=== PATIENT | male | born 1955 ===

== ENCOUNTER 2021-11-06 15:42 | Inpatient (IN) | payer OTHER, MEDICAID ==
[~2021-11-06] VITALS: Ht 193 cm; Wt 103.0 kg
[2021-11-06] MEDS ORDERED: cefTRIAXone 1GM/50ML D5W 50 ML IV ONE (18:00)
[2021-11-06] MEDS ORDERED: DexAMETHasone SOD PHOS 10MG/1ML VIAL INJ IV ONE (18:00)
[2021-11-06] MEDS ORDERED: AZITHROMYCIN 500MG/ 250ML 250 ML IV ONE (18:00)
[2021-11-06 18:12] LABS: Eosinophils # (auto) 0 10 ^3/uL (0-0.8); Lymphocytes # (auto) 0.2 10 ^3/uL (0.4-5.4); White Blood Cell 3.3 10^3/uL (4.4-10.8)
[2021-11-06 18:14] LABS: Basophils # (auto) 0 10 ^3/uL (0-0.2); Basophils % (auto) 0.5 % (0.0-2.0); Eosinophils % (auto) 0.2 % (0.0-7.0); Hemoglobin 20.5 g/dL (13.5-17.5); Lymphocytes % (auto) 6.3 % (10.0-50.0); Mean Corpuscular Hemoglobin 29.9 pg (28.0-32.0); Mean Corpuscular Volume 90.4 fL (80.0-100.0); Monocytes # (auto) 0.6 10 ^3/uL (0-1.3); Monocytes % (auto) 17.7 % (0.0-12.0); Neutrophils # (auto) 2.5 10 ^3/uL (1.6-8.6); Neutrophils % (auto) 75.3 % (37.0-80.0); Nucleated Red Blood Cells % 0.1 %; Red Blood Cells 6.86 10^6/uL (4.5-5.90); Red Cell Distribution Width 14.2 % (11.8-14.3)
[2021-11-06 18:15] LABS: Hematocrit 62.1 % (41.0-53.0)
[2021-11-06 18:27] LABS: Albumin 3.5 g/dL (3.4-5.0); Potassium 4.4 mmol/L (3.5-5.1)
[2021-11-06 18:32] LABS: BUN/Creatinine Ratio 20.9; Total Protein 6.8 g/dL (6.4-8.2)
[2021-11-06] MEDS ORDERED: NITROGLYCERIN 0.4 MG SL TAB SL PRN ×2 (18:45→21:00)
[2021-11-06] MEDS ORDERED: MORPHINE SULFATE INJECTION 2 MG/ML SYRG IV PRN ×3 (18:45→21:00)
[2021-11-06 19:52] LABS: Urine Bacteria FEW /hpf (None Seen); Urine Blood Negative /uL (Negative); Urine Hyaline Cast MOD /lpf (0 - 2); Urine Mucus FEW (None Seen); Urine Specific Gravity 1.021 (1.001-1.035); Urine WBC 4 /hpf (0 - 3)
[2021-11-06] MEDS ORDERED: ALBUTEROL SULF 2.5 MG/0.5ML(0.5%) NEB SOLN NEB PRN (20:45)
[2021-11-06] MEDS ORDERED: REMDESIVIR PER PHARMACY 0 ML IV SCH (20:45)
[2021-11-06] MEDS ORDERED: ENOXAPARIN SOD 40 MG/0.4 ML SYRINGE SC ONE (20:45)
[2021-11-06] MEDS ORDERED: ALBUTEROL SULF 2.5 MG/0.5ML(0.5%) NEB SOLN NEB ONE (20:45)
[2021-11-06] MEDS ORDERED: ACETAMINOPHEN 500 MG TAB PO PRN (20:45)
[2021-11-06] MEDS ORDERED: IPRATROPIUM BROM 0.5 MG/2.5ML INH SOL NEB ONE (20:45)
[2021-11-06] MEDS ORDERED: hydrALAZINE HCL 20 MG/ML VL IV PRN (21:00)
[2021-11-06] MEDS ORDERED: ALUM & MAG HYDROX-SIMETH LIQ(MAALOX) 30 ML PO PRN (21:00)
[2021-11-06] MEDS ORDERED: METOCLOPRAMIDE HCL 5MG/ml INJ 2ml VIAL IV PRN (21:00)
[2021-11-06] MEDS ORDERED: FAMOTIDINE (10MG/ML) 2ML VL IV ONE (21:00)
[2021-11-06] MEDS ORDERED: HYDROcodone-ACET 5/325MG TAB PO PRN (21:00)
[2021-11-06] MEDS ORDERED: ACETAMINOPHEN 325 MG TAB PO PRN ×2 (21:00→21:15)
[2021-11-06] MEDS ORDERED: METOPROLOL SUCCINATE XL 50 MG TAB PO ONE (21:00)
[2021-11-06] MEDS ORDERED: DOCUSATE SOD 100 MG CAP PO PRN (21:00)
[2021-11-06] MEDS: BUDESONIDE (INHALATION) 180 MCG IH IN SCH (22:00)
[2021-11-06] MEDS ORDERED: ENOXAPARIN SOD 60 MG/0.6 ML SYRINGE SC SCH (22:00)
[2021-11-06] MEDS ORDERED: ALBUTEROL SULF HFA 90MCG INH 200DOSE IN SCH (22:00)
[2021-11-06 22:24] LABS: CRP High Sensitivity 2.54 mg/dL (< 0.3); Magnesium 2.3 mg/dL (1.6-2.6); Thyroid Stimulating Hormone 1.44 uIU/mL (0.358-3.74)
[2021-11-06] MEDS: ATORVASTATIN 20 MG TAB PO SCH (22:27)
[2021-11-06] MEDS: ENOXAPARIN SOD 40 MG/0.4 ML SYRINGE SC SCH (22:27)
[2021-11-06] MEDS ORDERED: REMDESIVIR 200 MG in NS 210ml LOADING DOSE ADULT IV ONE (22:30)
[2021-11-06 23:39] LABS: Alcohol, Urine < 3.0 mg/dL (0-10); Amphetamine Screen, Urine NEGATIVE (NEGATIVE); Barbiturate Scree,Urine NEGATIVE (NEGATIVE); Benzodiazephine Screen, Urine NEGATIVE (NEGATIVE); Cocaine Screen, Urine NEGATIVE (NEGATIVE); Phencyclidine Screen, Urine NEGATIVE (NEGATIVE)
[2021-11-06 23:47] LABS: Cannabinoid Screen, Urine POSITIVE (NEGATIVE); Opiate Scree,Urine NEGATIVE (NEGATIVE)
[2021-11-07] MEDS ORDERED: IPRATROPIUM BROM 0.5 MG/2.5ML INH SOL NEB SCH (02:00)
[2021-11-07 06:54] LABS: Basophils # (auto) 0 10 ^3/uL (0-0.2); Eosinophils # (auto) 0 10 ^3/uL (0-0.8); Hemoglobin 18.1 g/dL (13.5-17.5); Monocytes # (auto) 0.4 10 ^3/uL (0-1.3); White Blood Cell 3.6 10^3/uL (4.4-10.8)
[2021-11-07 06:57] LABS: Basophils % (auto) 0.2 % (0.0-2.0); Hematocrit 52.8 % (41.0-53.0); Lymphocytes # (auto) 0.1 10 ^3/uL (0.4-5.4); Lymphocytes % (auto) 4.1 % (10.0-50.0); Mean Corpuscular Hemoglobin 30.7 pg (28.0-32.0); Mean Corpuscular Hgb Conc. 34.3 g/dL (32.0-36.0); Mean Corpuscular Volume 89.4 fL (80.0-100.0); Monocytes % (auto) 11.8 % (0.0-12.0); Neutrophils % (auto) 83.9 % (37.0-80.0); Nucleated Red Blood Cells % 0.1 %; Red Blood Cells 5.91 10^6/uL (4.5-5.90); Red Cell Distribution Width 14.1 % (11.8-14.3)
[2021-11-07 07:18] LABS: INR 1.21 (0.9-1.15); Partial Thromboplastin Time 52.2 sec (23.6-33.0)
[2021-11-07 07:22] LABS: Albumin 2.5 g/dL (3.4-5.0); Calcium 7.4 mg/dL (8.5-10.1); Magnesium 2.9 mg/dL (1.6-2.6); Potassium 3.6 mmol/L (3.5-5.1)
[2021-11-07 07:30] LABS: BUN/Creatinine Ratio 39.6; Bilirubin, Total 0.5 mg/dL (0.2-1.0); Phosphorus 3.1 mg/dL (2.5-4.90); Total Protein 5.4 g/dL (6.4-8.2); Uric Acid 5.7 mg/dL (3.5-7.2)
[2021-11-07] MEDS: cefTRIAXone 1GM/50ML D5W 50 ML IV SCH (09:50)
[2021-11-07] MEDS: BUDESONIDE (INHALATION) 180 MCG IH IN SCH ×2 (10:00→18:12)
[2021-11-07] MEDS ORDERED: AZITHROMYCIN 500MG/ 250ML 250 ML IV SCH (10:00)
[2021-11-07] MEDS: FAMOTIDINE (10MG/ML) 2ML VL IV SCH ×2 (10:28→21:06)
[2021-11-07] MEDS: IVERMECTIN 3 MG TAB PO SCH (10:29)
[2021-11-07] MEDS: ENOXAPARIN SOD 40 MG/0.4 ML SYRINGE SC SCH ×2 (10:29→21:06)
[2021-11-07] MEDS: ZINC SULFATE 220mg CAP or TAB PO SCH (10:29)
[2021-11-07] MEDS: NIFEdipine ER 30 MG TAB PO SCH (10:29)
[2021-11-07] MEDS: CHOLECALCIFEROL (VITD3) 2,000 UNIT CAP/TAB PO SCH (10:29)
[2021-11-07] MEDS: BENAZEPRIL HCL 10 MG TAB PO SCH (10:30)
[2021-11-07] MEDS: ASCORBIC ACID 1,000 MG TAB PO SCH (10:30)
[2021-11-07] MEDS: ASPirin 81 mg TAB PO SCH (10:30)
[2021-11-07] MEDS: DexAMETHasone SOD PHOS 10MG/1ML VIAL INJ IV SCH (10:30)
[2021-11-07] MEDS: METOPROLOL SUCCINATE XL 50 MG TAB PO SCH (10:31)
[2021-11-07] MEDS: AZITHROMYCIN 500MG/ 250ML 250 ML IV SCH (10:32)
[2021-11-07] MEDS ORDERED: ASPI81TA10 PO (15:03)
[2021-11-07] MEDS ORDERED: LISI40TA11 PO (15:03)
[2021-11-07] MEDS ORDERED: AMLO-496 PO (15:03)
[2021-11-07] MEDS ORDERED: MET50T PO (15:03)
[2021-11-07] MEDS: REMDESIVIR 100mg 100 MG in SODIUM CHL 0.9% 230 ML IV SCH (15:12)
[2021-11-07 17:00] VITALS: BP 100/66
[2021-11-07] MEDS: ATORVASTATIN 20 MG TAB PO SCH (21:06)
[2021-11-07 22:00] VITALS: BP 118/72
[2021-11-08] VITALS (12 sets, daily range): BP systolic 85–124; BP diastolic 54–77
[2021-11-08 07:05] LABS: White Blood Cell 3.3 10^3/uL (4.4-10.8)
[2021-11-08 07:08] LABS: Hematocrit 54.3 % (41.0-53.0); Hemoglobin 18.3 g/dL (13.5-17.5); Mean Corpuscular Hemoglobin 30.3 pg (28.0-32.0); Mean Corpuscular Hgb Conc. 33.8 g/dL (32.0-36.0); Mean Corpuscular Volume 89.7 fL (80.0-100.0); Red Blood Cells 6.06 10^6/uL (4.5-5.90); Red Cell Distribution Width 14.2 % (11.8-14.3)
[2021-11-08 07:29] LABS: Basophils % (manual) 0 (0.0-2.0); Blast Cells 0; Eosinophils % (manual) 0 (0-7); Metamyelocytes % 0; Myelocytes % 0; Promyelocytes % 0; Reactive Lymphocytes 0
[2021-11-08 08:31] LABS: Band Neutrophils % (manual) 5; Lymphocytes % (manual) 10 (10.0-50.0); Monocytes % (manual) 14 (0-12)
[2021-11-08] MEDS: cefTRIAXone 1GM/50ML D5W 50 ML IV SCH (09:14)
[2021-11-08] MEDS: DexAMETHasone SOD PHOS 10MG/1ML VIAL INJ IV SCH (09:14)
[2021-11-08] MEDS: ASPirin 81 mg TAB PO SCH (09:15)
[2021-11-08] MEDS: FAMOTIDINE (10MG/ML) 2ML VL IV SCH ×2 (09:15→22:14)
[2021-11-08] MEDS: ZINC SULFATE 220mg CAP or TAB PO SCH (09:15)
[2021-11-08] MEDS: BENAZEPRIL HCL 10 MG TAB PO SCH (09:16)
[2021-11-08] MEDS: NIFEdipine ER 30 MG TAB PO SCH (09:16)
[2021-11-08] MEDS: IVERMECTIN 3 MG TAB PO SCH (09:16)
[2021-11-08] MEDS: METOPROLOL SUCCINATE XL 50 MG TAB PO SCH (09:17)
[2021-11-08] MEDS: ASCORBIC ACID 1,000 MG TAB PO SCH (09:17)
[2021-11-08 09:18] LABS: Potassium 4.3 mmol/L (3.5-5.1)
[2021-11-08] MEDS: ENOXAPARIN SOD 40 MG/0.4 ML SYRINGE SC SCH ×2 (09:18→22:14)
[2021-11-08] MEDS: CHOLECALCIFEROL (VITD3) 2,000 UNIT CAP/TAB PO SCH (09:18)
[2021-11-08 09:19] LABS: Albumin 2.5 g/dL (3.4-5.0); Bilirubin, Total 0.5 mg/dL (0.2-1.0); Calcium 7.5 mg/dL (8.5-10.1); Total Protein 5.2 g/dL (6.4-8.2)
[2021-11-08] MEDS: BUDESONIDE (INHALATION) 180 MCG IH IN SCH ×2 (10:00→22:00)
[2021-11-08] MEDS: AZITHROMYCIN 500MG/ 250ML 250 ML IV SCH (10:38)
[2021-11-08] MEDS: REMDESIVIR 100mg 100 MG in SODIUM CHL 0.9% 230 ML IV SCH (15:57)
[2021-11-08] MEDS: ATORVASTATIN 20 MG TAB PO SCH (22:15)
[2021-11-09] VITALS (9 sets, daily range): BP systolic 102–127; BP diastolic 57–74
[2021-11-09] MEDS: LORazepam 0.5 MG TAB PO PRN ×2 (01:06→21:55)
[2021-11-09] MEDS: BUDESONIDE (INHALATION) 180 MCG IH IN SCH ×2 (07:28→19:20)
[2021-11-09 07:51] LABS: Basophils # (auto) 0 10 ^3/uL (0-0.2)
[2021-11-09 07:54] LABS: Basophils % (auto) 0.7 % (0.0-2.0); Eosinophils # (auto) 0.1 10 ^3/uL (0-0.8); Eosinophils % (auto) 1.2 % (0.0-7.0); Hemoglobin 18.7 g/dL (13.5-17.5); Lymphocytes # (auto) 0.3 10 ^3/uL (0.4-5.4); Lymphocytes % (auto) 6.3 % (10.0-50.0); Mean Corpuscular Hemoglobin 29.8 pg (28.0-32.0); Mean Corpuscular Hgb Conc. 32.9 g/dL (32.0-36.0); Mean Corpuscular Volume 90.7 fL (80.0-100.0); Monocytes # (auto) 0.7 10 ^3/uL (0-1.3); Monocytes % (auto) 13.8 % (0.0-12.0); Neutrophils # (auto) 3.9 10 ^3/uL (1.6-8.6); Nucleated Red Blood Cells % 0.9 %; Red Blood Cells 6.29 10^6/uL (4.5-5.90); Red Cell Distribution Width 14.3 % (11.8-14.3)
[2021-11-09 08:14] LABS: Potassium 4.8 mmol/L (3.5-5.1)
[2021-11-09 08:26] LABS: Albumin 2.7 g/dL (3.4-5.0); BUN/Creatinine Ratio 52.8; Bilirubin, Total 0.6 mg/dL (0.2-1.0); CRP High Sensitivity 0.95 mg/dL (< 0.3); Calcium 7.5 mg/dL (8.5-10.1); Total Protein 5.4 g/dL (6.4-8.2)
[2021-11-09] MEDS: cefTRIAXone 1GM/50ML D5W 50 ML IV SCH (09:10)
[2021-11-09] MEDS: DexAMETHasone SOD PHOS 10MG/1ML VIAL INJ IV SCH (09:11)
[2021-11-09] MEDS: FAMOTIDINE (10MG/ML) 2ML VL IV SCH ×2 (09:11→21:55)
[2021-11-09] MEDS: ASPirin 81 mg TAB PO SCH (09:12)
[2021-11-09] MEDS: ZINC SULFATE 220mg CAP or TAB PO SCH (09:12)
[2021-11-09] MEDS: BENAZEPRIL HCL 10 MG TAB PO SCH (09:13)
[2021-11-09] MEDS: NIFEdipine ER 30 MG TAB PO SCH (09:14)
[2021-11-09] MEDS: IVERMECTIN 3 MG TAB PO SCH (09:14)
[2021-11-09] MEDS: METOPROLOL SUCCINATE XL 50 MG TAB PO SCH (09:15)
[2021-11-09] MEDS: ENOXAPARIN SOD 40 MG/0.4 ML SYRINGE SC SCH ×2 (09:16→21:55)
[2021-11-09] MEDS: CHOLECALCIFEROL (VITD3) 2,000 UNIT CAP/TAB PO SCH (09:16)
[2021-11-09] MEDS: ASCORBIC ACID 1,000 MG TAB PO SCH (09:16)
[2021-11-09] MEDS: AZITHROMYCIN 500MG/ 250ML 250 ML IV SCH (10:15)
[2021-11-09] MEDS ORDERED: SODIUM CHLORIDE 0.9% 1,000 ML IV SCH (13:30)
[2021-11-09] MEDS: REMDESIVIR 100mg 100 MG in SODIUM CHL 0.9% 230 ML IV SCH (15:27)
[2021-11-09] MEDS: ATORVASTATIN 20 MG TAB PO SCH (21:55)
[2021-11-10] VITALS (7 sets, daily range): BP systolic 110–121; BP diastolic 62–109
[2021-11-10] MEDS: BUDESONIDE (INHALATION) 180 MCG IH IN SCH ×2 (06:18→19:04)
[2021-11-10 07:54] LABS: Basophils # (auto) 0 10 ^3/uL (0-0.2); Eosinophils # (auto) 0 10 ^3/uL (0-0.8); Hemoglobin 18.8 g/dL (13.5-17.5); Monocytes # (auto) 0.8 10 ^3/uL (0-1.3); Monocytes % (auto) 15.5 % (0.0-12.0)
[2021-11-10 07:58] LABS: Lymphocytes # (auto) 0.3 10 ^3/uL (0.4-5.4); Lymphocytes % (auto) 6.3 % (10.0-50.0); Mean Corpuscular Hemoglobin 29.9 pg (28.0-32.0); Mean Corpuscular Hgb Conc. 33.1 g/dL (32.0-36.0); Mean Corpuscular Volume 90.3 fL (80.0-100.0); Neutrophils # (auto) 3.9 10 ^3/uL (1.6-8.6); Neutrophils % (auto) 78.2 % (37.0-80.0); Nucleated Red Blood Cells % 0.1 %; Red Cell Distribution Width 14.2 % (11.8-14.3)
[2021-11-10 08:07] LABS: Hematocrit 56.9 % (41.0-53.0)
[2021-11-10 08:13] LABS: Potassium 4.5 mmol/L (3.5-5.1)
[2021-11-10 08:20] LABS: Albumin 2.7 g/dL (3.4-5.0); BUN/Creatinine Ratio 55.2; Bilirubin, Total 0.6 mg/dL (0.2-1.0); Calcium 7.8 mg/dL (8.5-10.1); Total Protein 5.4 g/dL (6.4-8.2)
[2021-11-10] MEDS: DexAMETHasone SOD PHOS 10MG/1ML VIAL INJ IV SCH (09:38)
[2021-11-10] MEDS: FAMOTIDINE (10MG/ML) 2ML VL IV SCH ×2 (09:38→22:09)
[2021-11-10] MEDS: cefTRIAXone 1GM/50ML D5W 50 ML IV SCH (09:38)
[2021-11-10] MEDS: ENOXAPARIN SOD 40 MG/0.4 ML SYRINGE SC SCH ×2 (09:39→22:10)
[2021-11-10] MEDS: ZINC SULFATE 220mg CAP or TAB PO SCH (09:40)
[2021-11-10] MEDS: ASPirin 81 mg TAB PO SCH (09:40)
[2021-11-10] MEDS: ASCORBIC ACID 1,000 MG TAB PO SCH (09:41)
[2021-11-10] MEDS: CHOLECALCIFEROL (VITD3) 2,000 UNIT CAP/TAB PO SCH (09:41)
[2021-11-10] MEDS: IVERMECTIN 3 MG TAB PO SCH (09:42)
[2021-11-10] MEDS: BENAZEPRIL HCL 10 MG TAB PO SCH (09:43)
[2021-11-10] MEDS: NIFEdipine ER 30 MG TAB PO SCH (09:43)
[2021-11-10] MEDS: METOPROLOL SUCCINATE XL 50 MG TAB PO SCH (09:44)
[2021-11-10] MEDS: AZITHROMYCIN 500MG/ 250ML 250 ML IV SCH (10:50)
[2021-11-10] MEDS: REMDESIVIR 100mg 100 MG in SODIUM CHL 0.9% 230 ML IV SCH (15:28)
[2021-11-10] MEDS: ATORVASTATIN 20 MG TAB PO SCH (22:10)
[2021-11-10] MEDS: LORazepam 0.5 MG TAB PO PRN (23:41)
[2021-11-11 05:00] VITALS: BP_SYST 120; BP_SYST 125; BP_DIAS 67; BP_DIAS 69
[2021-11-11 05:58] LABS: Basophils # (auto) 0 10 ^3/uL (0-0.2); Basophils % (auto) 0.8 % (0.0-2.0); Eosinophils # (auto) 0 10 ^3/uL (0-0.8); Hemoglobin 17.1 g/dL (13.5-17.5); Lymphocytes # (auto) 0.2 10 ^3/uL (0.4-5.4); Lymphocytes % (auto) 3.5 % (10.0-50.0); Mean Corpuscular Hemoglobin 29.6 pg (28.0-32.0); Mean Corpuscular Hgb Conc. 32.8 g/dL (32.0-36.0); Mean Corpuscular Volume 90.1 fL (80.0-100.0); Monocytes # (auto) 0.8 10 ^3/uL (0-1.3); Monocytes % (auto) 14.6 % (0.0-12.0); Neutrophils # (auto) 4.2 10 ^3/uL (1.6-8.6); Neutrophils % (auto) 81.1 % (37.0-80.0); Red Blood Cells 5.78 10^6/uL (4.5-5.90); Red Cell Distribution Width 14.5 % (11.8-14.3); White Blood Cell 5.2 10^3/uL (4.4-10.8)
[2021-11-11 06:17] LABS: Albumin 2.4 g/dL (3.4-5.0); Calcium 7.5 mg/dL (8.5-10.1); Potassium 4.5 mmol/L (3.5-5.1)
[2021-11-11 06:23] LABS: BUN/Creatinine Ratio 65.4; Bilirubin, Total 0.4 mg/dL (0.2-1.0); Total Protein 4.9 g/dL (6.4-8.2)
[2021-11-11] MEDS: BUDESONIDE (INHALATION) 180 MCG IH IN SCH ×2 (06:52→21:09)
[2021-11-11 09:00] VITALS: BP 122/65
[2021-11-11] MEDS ORDERED: IOHEXOL 350 MG/ML 100ML IJ ONE (09:45)
[2021-11-11] MEDS: cefTRIAXone 1GM/50ML D5W 50 ML IV SCH (10:01)
[2021-11-11] MEDS: ASCORBIC ACID 1,000 MG TAB PO SCH (10:02)
[2021-11-11] MEDS: DexAMETHasone SOD PHOS 10MG/1ML VIAL INJ IV SCH (10:02)
[2021-11-11] MEDS: FAMOTIDINE (10MG/ML) 2ML VL IV SCH ×2 (10:02→21:51)
[2021-11-11] MEDS: ASPirin 81 mg TAB PO SCH (10:03)
[2021-11-11] MEDS: IVERMECTIN 3 MG TAB PO SCH (10:04)
[2021-11-11] MEDS: ZINC SULFATE 220mg CAP or TAB PO SCH (10:04)
[2021-11-11] MEDS: CHOLECALCIFEROL (VITD3) 2,000 UNIT CAP/TAB PO SCH (10:04)
[2021-11-11] MEDS: ENOXAPARIN SOD 40 MG/0.4 ML SYRINGE SC SCH ×2 (10:05→21:51)
[2021-11-11] MEDS: BENAZEPRIL HCL 10 MG TAB PO SCH (10:08)
[2021-11-11] MEDS: NIFEdipine ER 30 MG TAB PO SCH (10:08)
[2021-11-11] MEDS: METOPROLOL SUCCINATE XL 50 MG TAB PO SCH (10:12)
[2021-11-11] MEDS: AZITHROMYCIN 500MG/ 250ML 250 ML IV SCH (12:17)
[2021-11-11 12:56] VITALS: BP 121/71
[2021-11-11] MEDS ORDERED: NIFE1TAB31 PO (13:58)
[2021-11-11] MEDS ORDERED: CHOL1CAP47 PO (13:58)
[2021-11-11] MEDS ORDERED: ALBU108A5 IN (13:58)
[2021-11-11] MEDS ORDERED: ZINC220T6 PO (13:58)
[2021-11-11] MEDS ORDERED: ASCO10003 PO (13:58)
[2021-11-11] MEDS ORDERED: DEXA6TAB6 PO (13:58)
[2021-11-11] MEDS ORDERED: METO-6 PO (13:58)
[2021-11-11] MEDS ORDERED: DOXY-346 PO (14:02)
[2021-11-11 16:42] VITALS: BP 114/65
[2021-11-11 21:44] VITALS: BP 122/69
[2021-11-11] MEDS: ATORVASTATIN 20 MG TAB PO SCH (21:51)
[2021-11-12] MEDS: LORazepam 0.5 MG TAB PO PRN (01:10)
[2021-11-12 05:00] VITALS: BP 133/84
[2021-11-12 05:57] LABS: Potassium 4.6 mmol/L (3.5-5.1)
[2021-11-12 05:58] LABS: Basophils # (auto) 0 10 ^3/uL (0-0.2); Basophils % (auto) 0.5 % (0.0-2.0); Eosinophils # (auto) 0 10 ^3/uL (0-0.8); Hematocrit 51.7 % (41.0-53.0); Hemoglobin 17.3 g/dL (13.5-17.5); Lymphocytes # (auto) 0.2 10 ^3/uL (0.4-5.4); Lymphocytes % (auto) 3.1 % (10.0-50.0); Mean Corpuscular Hemoglobin 30.2 pg (28.0-32.0); Mean Corpuscular Hgb Conc. 33.4 g/dL (32.0-36.0); Mean Corpuscular Volume 90.4 fL (80.0-100.0); Monocytes # (auto) 0.7 10 ^3/uL (0-1.3); Monocytes % (auto) 12.2 % (0.0-12.0); Neutrophils % (auto) 84.2 % (37.0-80.0); Nucleated Red Blood Cells % 0.1 %; Red Blood Cells 5.71 10^6/uL (4.5-5.90); Red Cell Distribution Width 14.4 % (11.8-14.3); White Blood Cell 5.9 10^3/uL (4.4-10.8)
[2021-11-12] MEDS: BUDESONIDE (INHALATION) 180 MCG IH IN SCH (06:12)
[2021-11-12 06:17] LABS: Albumin 2.3 g/dL (3.4-5.0); BUN/Creatinine Ratio 69.2; Bilirubin, Total 0.4 mg/dL (0.2-1.0); Calcium 7.2 mg/dL (8.5-10.1); Total Protein 4.9 g/dL (6.4-8.2)
[2021-11-12 08:00] VITALS: BP 122/65
[2021-11-12 10:06] VITALS: BP 128/69
[2021-11-12] MEDS: FAMOTIDINE (10MG/ML) 2ML VL IV SCH (10:24)
[2021-11-12] MEDS: DexAMETHasone SOD PHOS 10MG/1ML VIAL INJ IV SCH (10:24)
[2021-11-12] MEDS: ASPirin 81 mg TAB PO SCH (10:24)
[2021-11-12] MEDS: cefTRIAXone 1GM/50ML D5W 50 ML IV SCH (10:24)
[2021-11-12] MEDS: METOPROLOL SUCCINATE XL 50 MG TAB PO SCH (10:25)
[2021-11-12] MEDS: NIFEdipine ER 30 MG TAB PO SCH (10:25)
[2021-11-12] MEDS: BENAZEPRIL HCL 10 MG TAB PO SCH (10:25)
[2021-11-12] MEDS: ASCORBIC ACID 1,000 MG TAB PO SCH (10:25)
[2021-11-12] MEDS: ENOXAPARIN SOD 40 MG/0.4 ML SYRINGE SC SCH (10:26)
[2021-11-12] MEDS: CHOLECALCIFEROL (VITD3) 2,000 UNIT CAP/TAB PO SCH (10:26)
[2021-11-12] MEDS: ZINC SULFATE 220mg CAP or TAB PO SCH (10:27)
[2021-11-12 13:00] VITALS: BP 116/68
[2021-11-12 15:16] VITALS: BP 128/69
== END 2021-11-12 17:13 | disposition home health service (06) | DRG 871 ==
LOC: ER 15:42 → EDBD 15:42 → TELE 18:44 → TELE-EAST 11-07 13:32 → EAST 11-08 11:08 → TELE-E-ADS 11-09 04:45
PROVIDERS: ADMIT Hospitalist; ATTEND Hospitalist
PROC: XW033E5 Introduction of Remdesivir Anti-infective into Peripheral Vein, Percutaneous Approach, New Technology Group 5 (ICD-10-PCS; 2021-11-06)
PROC: 5A0945A Assistance with Respiratory Ventilation, 24-96 Consecutive Hours, High Flow/Velocity Cannula (ICD-10-PCS; principal; 2021-11-08)
PROC: 05HC33Z Insertion of Infusion Device into Left Basilic Vein, Percutaneous Approach (ICD-10-PCS; 2021-11-08)
PROC: B54NZZA Ultrasonography of Left Upper Extremity Veins, Guidance (ICD-10-PCS; 2021-11-08)
DX: A41.89 Other specified sepsis (principal); U07.1 COVID-19; J12.82 Pneumonia due to coronavirus disease 2019; J96.21 Acute and chronic respiratory failure with hypoxia; J44.1 Chronic obstructive pulmonary disease with (acute) exacerbation; N39.0 Urinary tract infection, site not specified; G82.20 Paraplegia, unspecified; I16.9 Hypertensive crisis, unspecified; E87.1 Hypo-osmolality and hyponatremia; J44.0 Chronic obstructive pulmonary disease with (acute) lower respiratory infection; K21.9 Gastro-esophageal reflux disease without esophagitis; D75.1 Secondary polycythemia; K75.81 Nonalcoholic steatohepatitis (NASH); E78.5 Hyperlipidemia, unspecified; F12.90 Cannabis use, unspecified, uncomplicated; F17.200 Nicotine dependence, unspecified, uncomplicated; I10 Essential (primary) hypertension; Z74.01 Bed confinement status
CPT/HCPCS: 36415; 36600; 71045; 71275; 80053; 80307; 81001; 82306; 82728; 82805; 83036; 83605; 83615; 83735; 83880; 84100; 84443; 84484; 84550; 85007; 85025; 85027; 85379; 85610; 85730; 86141; 87040; 87086; 87088; 87186; 87426; 93005; 93971; 94640; 96365; 96375; 99291; G0378; J0696; J1100; J3490

== ENCOUNTER 2021-11-19 11:41 | Emergency (ER) | payer OTHER, MEDICAID ==
[~2021-11-19] VITALS: Ht 188 cm; Wt 79.4 kg
[~2021-11-19 11:41] MED LIST: ALBU108A5 IN; ASCO10003 PO; ASPI81TA10 PO; CHOL1CAP47 PO; DEXA6TAB6 PO; DOXY-346 PO; METO-6 PO; NIFE1TAB31 PO; ZINC220T6 PO
[2021-11-19 13:04] LABS: Urine Bacteria FEW /hpf (None Seen); Urine Blood Negative /uL (Negative); Urine Mucus FEW (None Seen); Urine Specific Gravity 1.009 (1.001-1.035); Urine WBC 9 /hpf (0 - 3)
[2021-11-19] MEDS ORDERED: NITROFURANTOIN 100 mg CAP PO ONE (13:45)
[2021-11-20 11:58] VITALS: BP 142/92
== END 2021-11-20 09:44 | disposition home or self-care (01) ==
LOC: ER 11:41 → EDBD 11:41 → ER 11-20 09:44
DX: N40.1 Benign prostatic hyperplasia with lower urinary tract symptoms (principal); F17.210 Nicotine dependence, cigarettes, uncomplicated; F12.10 Cannabis abuse, uncomplicated; Z95.1 Presence of aortocoronary bypass graft
CPT/HCPCS: 51702; 81001